=== PATIENT | male | born 1950 | race Two or more races ===

== ENCOUNTER 2022-01-03 06:35 | Day surgery (SDC) | payer OTHER ==
[~2022-01-03] VITALS: Ht 172.7 cm; Wt 81.6 kg
[~2022-01-03 06:35] MED LIST: CYMBALTA60 MG PO; ELAVIL PO; XANAX1 MG PO
[2022-01-03] MEDS ORDERED: PERCOCET 5-3251 EACH PO (11:24)
== END 2022-01-03 17:40 | disposition home or self-care (01) ==
LOC: CIR.AMB 06:35
PROVIDERS: ATTEND Surgery
DX: K64.2 Third degree hemorrhoids (principal); K62.89 Other specified diseases of anus and rectum; Z88.0 Allergy status to penicillin; Z99.89 Dependence on other enabling machines and devices; G47.33 Obstructive sleep apnea (adult) (pediatric); Z20.822 Contact with and (suspected) exposure to COVID-19

== ENCOUNTER 2022-01-09 11:22 | Emergency (ER) | payer OTHER ==
[~2022-01-09] VITALS: Ht 172.7 cm; Wt 81.6 kg
[~2022-01-09 11:22] MED LIST changes: +PERCOCET 5-3251 EACH PO
== END 2022-01-09 17:46 | disposition home or self-care (01) ==
LOC: ER 11:22
DX: R19.7 Diarrhea, unspecified (principal); Z88.0 Allergy status to penicillin